=== PATIENT | female | born 1975 | race Two or more races ===

== ENCOUNTER 2021-07-23 07:57 | Day surgery (SDC) | payer OTHER ==
[2021-07-23] MEDS ORDERED: CIPRO250 MG PO (12:50)
[2021-07-23] MEDS ORDERED: ULTRACET PO (12:51)
== END 2021-07-23 16:35 | disposition home or self-care (01) ==
LOC: CIR.AMB 07:57
PROVIDERS: ATTEND Obstetrics & Gynecology Gynecology
DX: N81.3 Complete uterovaginal prolapse (principal)